=== PATIENT | female | born 1990 | race American Indian/Alaskan Native ===

== ENCOUNTER 2016-10-15 13:29 | Emergency (ER) | payer MEDICAID, OTHER ==
[2016-10-15 15:25] VITALS: BP 120/72
[2016-10-15 16:12] LABS: Basophils % (Auto) 0.1 % (0.0-1.8); Eosinophils % (Auto) 0.1 % (0.0-4.3); Hematocrit 37.7 % (30.3-42.9); Mean Corpuscular HGB Conc 32 % (30-34); Mean Corpuscular Hemoglobin 26 pg (28-32); Mean Corpuscular Volume 83 fl (79-97); Platelet Count 278 K/mm3 (140-440); Red Blood Count 4.55 M/mm3 (3.65-5.03); Red Cell Distribution Width 14.8 % (13.2-15.2)
[2016-10-15 16:27] LABS: Anion Gap 18 mmol/L; Blood Urea Nitrogen 15 mg/dL (7-17); Carbon Dioxide 25 mmol/L (22-30); Chloride 99.9 mmol/L (98-107); Glucose 97 mg/dL (65-100); Potassium 4.4 mmol/L (3.6-5.0); Sodium 138 mmol/L (137-145)
[2016-10-15 16:48] LABS: Bilirubin,Urine NEG (Negative); Blood,Urine NEG (Negative); Ketones,Urine 20 mg/dL (Negative); Leukocyte Esterase,Urine NEG (Negative); Mucus,Urine 2+ /HPF; Nitrite,Urine NEG (Negative); Protein,Urine <15 mg/dL mg/dL (Negative); Urobilinogen,Urine < 2.0 mg/dL (<2.0)
--- NOTE | 2016-10-16 07:09 | ED Elopement Review ---
ED Pt Elopement review - Results review Lab results: Laboratory Tests 10/15/16 10/15/16 10/15/16 15:54 15:54 Unknown WBC 15.0 H RBC 4.55 Hgb 12.0 Hct 37.7 MCV 83 MCH 26 L MCHC 32 RDW 14.8 Plt Count 278 Lymph % (Auto) 6.7 L [place] % (Auto) 3.1 Eos % (Auto) 0.1 Baso % (Auto) 0.1 Lymph # 1.0 L [place] # 0.5 Eos # 0.0 Baso # 0.0 Seg Neutrophils % 90.0 H Seg Neutrophils # 13.5 H Sodium 138 Potassium 4.4 Chloride 99.9 Carbon Dioxide 25 Anion Gap 18 BUN 15 Creatinine 0.6 L Estimated GFR > 60 BUN/Creatinine Ratio 25.00 Glucose 97 Calcium 9.0 Urine Color Yellow Urine Turbidity Clear Urine pH 5.0 Ur Specific [place] 1.032 H Urine Protein <15 mg/dl Urine Glucose (UA) Neg Urine Ketones 20 Urine Blood Neg Urine Nitrite Neg Ur Reducing Substances Not Reportable Urine Bilirubin Neg Urine Ictotest Not Reportable Urine Urobilinogen < 2.0 Ur Leukocyte Esterase Neg Urine WBC (Auto) 2.0 Urine RBC (Auto) 6.0 U Epithel Cells (Auto) 1.0 Urine Mucus 2+ Urine HCG, Qual Negative - Call Back decision Pt Call Back Decision: No action required
== END 2016-10-15 22:15 | disposition left against medical advice (07) ==
LOC: ED 13:29
DX: R11.2 Nausea with vomiting, unspecified (principal); R19.7 Diarrhea, unspecified; M79.1 Myalgia; Z53.21 Procedure and treatment not carried out due to patient leaving prior to being seen by health care provider
CPT/HCPCS: 36415; 80048; 81001; 81025; 85025

== ENCOUNTER 2020-03-12 17:17 | Outpatient (CLI) | payer OTHER ==
[2020-03-12] MEDS ORDERED: ONDANSETRON 4 MG/2 ML INJ IV PRN (17:41)
[2020-03-12] MEDS ORDERED: LACTATED RINGERS 1,000 ML IV SCH (18:00)
[2020-03-12 18:49] VITALS: BP 113/67
== END 2020-03-12 20:10 | disposition home or self-care (01) ==
LOC: APU 17:17 → TRG 17:17
PROVIDERS: ATTEND Obstetrics & Gynecology
DX: O26.893 Other specified pregnancy related conditions, third trimester (principal); R10.30 Lower abdominal pain, unspecified; O47.1 False labor at or after 37 completed weeks of gestation; Z3A.38 38 weeks gestation of pregnancy
CPT/HCPCS: 59025; 96365; 96366; J2405; J7120; 96360; 96374

== ENCOUNTER 2020-05-12 07:02 | Day surgery (SDC) | payer BC, OTHER ==
--- NOTE | 2020-05-10 15:05 | History and Physical Report ---
History of Present Illness Date of examination: 05/10/20 Date of admission: 05/12/2020 Chief complaint: here for sterilization History of present illness: Visit Type: Pre-Op CC: long periods. History of Present Illness: pt presents for pre op, laparoscopy w/salpingectomy: c/o periods lasting l;onger than normal......................................................................Latonia Ruiz May 09, 2020 9:54 AM Mask, Patient denies fever, cough, shortness of breath and exposure to COVID-19. Pt here for pre op for BTL vis salpingectomy. All risk/benefits/alternatives were d/w pt and questions were addressed and answered. Consents signed and arlyn nancy on the chart. Copy was also provided to the pt. Vital Signs: Patient Profile: 30 Years Old Female LMP: 04/27/2020 Height: 65 inches (165.10 cm) Weight: 171 pounds BMI: 28.45 Temp: 97.8 degrees F BP sittin / 66 (left arm) Menstrual History: LMP (date): 04/27/2020 LMP - Character: normal Menarche: 13 Menses interval: 28 days Menstrual flow: 1.5 wks days Current Method of Contraception: Abstinence Past History : 5 Term Births: 3 Premature Births: 1 Living Children: 4 Para: 4 Mult. Births: 0 Prev : 0 Prev. attempt? 0 Aborta: 1 Elect. Ab: 1 Spont. Ab: 0 Ectopics: 0 # 1 Delivery date: 01/05/2013 Weeks Gestation: 35 Delivery type: Sex: Male weight: 4.8 Name: Louie # 2 Delivery date: 10/06/2014 Weeks Gestation: 39 Delivery type: Sex: Female weight: 6.7 Name: Ching # 3 Delivery date: 03/12/2016 Weeks Gestation: 36 Delivery type: Vaginal Anesthesia type: epidural Delivery location: [facility] Infant Sex: female weight: 5.75 Comments: rupture of membranes # 4 Delivery date: 03/15/2020 Weeks Gestation: 38 Delivery type: Vaginal Anesthesia type: epidural Delivery location: [facility] Sex: female weight: 7.31 Name: rolan Comments: GBS+ completed 2 doses YARD HAND History Uterine Surgery (not C/S): negative Operations: D&C:EAB Anesthesia Complications: negative Abnormal PAP: negative Infection History HIV Risk Eval: no Personal hx. of genital herpes: no Partner hx. of genital herpes: no Hx of STD: + CT and Trich Other: Trich Active Medications (reviewed today): ONE A DAY MULTIVITAMINS () Current Allergies (reviewed today): No known allergies Past Medical History: Reviewed history from 11/28/2015 and no changes required: mitral valve prolapse - dx at [facility] SVT with first Past Surgical History: Reviewed history from 10/27/2017 and no changes required: D&C:EAB Family History Summary: Reviewed history Last on 10/27/2017 and no changes required:05/11/2020 General Comments - FH: No Family History of Breast Cancer No Family History of Colon Cancer No Family History of Ovarian Cancer Social History: Reviewed history from 12/20/2014 and no changes required: Patient is single Carmne's Risk Factors: Smoked Tobacco Use: Never smoker Smokeless Tobacco Use: Never Drug use: no HIV high-risk behavior: no Alcohol use: yes Exercise: no Seatbelt use: 100 % Review of Systems General Denies fever, chills, sweats, anorexia, fatigue, weakness, malaise, weight loss and sleep disorder. Denies nausea, vomiting, headache, swelling of legs, abdominal pain, vaginal discharge, vaginal bleeding and contractions. Denies vaginal discharge, incontinence, dysuria, hematuria, urinary frequency, amenorrhea, menorrhagia, abnormal vaginal bleeding, pelvic pain, genital sores, decreased libido, painful periods, painful sex, urinary urgency, hot flashes, vaginal dryness, vaginal itching and vaginal odor. CV Denies chest pains, palpitations, syncope, dyspnea on exertion, orthopnea, PND and peripheral edema. Resp Denies cough, dyspnea at rest, excessive sputum, hemoptysis, wheezing and pleurisy. GI Denies nausea, vomiting, diarrhea, constipation, change in bowel habits, abdominal pain, melena, hematochezia, jaundice, gas/bloating, indigestion/heartburn, dysphagia and odynophagia. Endo Denies cold intolerance, heat intolerance, polydipsia, polyphagia, polyuria and unusual weight change. Breast Denies left breast lump, right breast lump, nipple discharge, bloody discharge from nipple, breast pain, abnormal mammogram and breast enlargement. MS Denies back pain, joint pain, joint swelling, muscle cramps, muscle weakness, stiffness, arthritis, sciatica, restless legs, leg pain at night and leg pain with exertion. Derm Denies rash, itching, dryness and suspicious lesions. Neuro Denies paralysis, paresthesias, headache, seizures, tremors, vertigo, transient blindness, frequent falls, frequent headaches and difficulty walking. Psych Denies depression, anxiety, irritability and mood swings. Eyes Denies blurring, diplopia, irritation, discharge, vision loss, eye pain and photophobia. ENT Denies earache, ear discharge, tinnitus, decreased hearing, nasal congestion, nosebleeds, sore throat and hoarseness. Allergy Denies urticaria, allergic rash, hay fever and recurrent infections. Heme Denies abnormal bruising, bleeding and enlarged lymph nodes. Laboratory Results Past History Past Medical History: other (see hpi) Past Surgical History: other (see hpi) YARD HAND History: other (see hpi) Family/Genetic History: other (see hpi) Social history: other (see hpi) - Obstetrical History : 5 Medications and Allergies Allergies Allergy/AdvReac Type Severity Reaction Status Date / Time No Known Allergies Allergy Verified 05/04/20 16:06 Home Medications Medication Instructions Recorded Confirmed Last Taken Type Multivit-Min/Iron/Folic Acid/K 1 each PO DAILY 05/04/20 05/04/20 Unknown History [One Daily Women's Multivitamin] - Physical Exam Cardiovascular: Normal S1, Normal S2 Lungs: Positive: Clear to auscultation, Normal air movement Abdomen: Positive: normal appearance, soft. Negative: distention, tenderness, guarding Genitourinary (Female): Positive: other (deferred) Deep Tendon Reflex Grade: Normal +2 Results All other labs normal. Assessment and Plan - Patient Problems (1) Encounter for sterilization Status: Acute Plan to address problem: -all risk, benefits and alternatives d/w pt. All questions were addressed and answered. Consents signed and placed on the chart. -to OR for above stated procedure
[~2020-05-12 07:02] MED LIST: CELECOXIB 200 MG CAP PO NR; GABAPENTIN 300 MG CAP PO NR; LACTATED RINGERS 1,000 ML IV SCH; MAGNESIUM OXIDE 400 MG TAB PO SCH; MIDAZOLAM 2 MG/2 ML INJ IV NR; ceFAZolin/Water 2 GM/20 ML 2 GM/20 ML SYRINGE IV NR
[2020-05-12] MEDS ORDERED: HYDROmorphone 1 MG/1 ML INJ IV PRN (07:49)
--- NOTE | 2020-05-12 07:49 | Anesthesia Consultation ---
Anesthesia Consult and Med Hx Date of service: 05/12/20 - Airway Anesthetic Teeth Evaluation: Good ROM Head & Neck: Adequate Mental/Hyoid Distance: Adequate Mallampati Class: Class I Intubation Access Assessment: Good - Pulmonary Exam CTA: Yes - Cardiac Exam Cardiac Exam: RRR - Pre-Operative Health Status ASA Pre-Surgery Classification: ASA1 Proposed Anesthetic Plan: General - Pulmonary Hx Smoking: No Hx Respiratory Symptoms: No Hx Sleep Apnea: No - Cardiovascular System Hx Hypertension: No Hx Heart Attack/AMI: No Hx Percutaneous Transluminal Coronary Angioplasty (PTCA): No - Central Nervous System CVA: No - Gastrointestinal Hx Gastroesophageal Reflux Disease: No - Endocrine Hx Renal Disease: No Hx Liver Disease: No Hx Insulin Dependent Diabetes: No Hx Non-Insulin Dependent Diabetes: No Hx Thyroid Disease: No - Other Systems Hx Obesity: No - Additional Comments Anesthesia Medical History Comments: No hx anesthetic complications.
--- NOTE | 2020-05-12 07:49 | Anesthesia Day of Surgery ---
Anesthesia Day of Surgery - Day of Surgery Patient Examined: Yes Patient H&P Reviewed: Yes Patient is NPO: Yes
[2020-05-12] MEDS ORDERED: BUPIVACAINE/PF (0.5%) 5 MG/1 ML 10 ML VIAL INFILTRATI ONE ×2 (09:15→10:15)
[2020-05-12] MEDS ORDERED: fentaNYL 100 MCG/2 ML INJ ONE (09:23)
[2020-05-12] MEDS ORDERED: GLYCOPYRROLATE 0.4 MG/2 ML INJ ONE (09:23)
[2020-05-12] MEDS ORDERED: SUCCINYLCHOLINE CHLORIDE 200 MG/10 ML INJ MDV ONE (09:23)
[2020-05-12] MEDS ORDERED: NEOSTIGMINE 10MG/10 ML INJ MDV ONE (09:23)
[2020-05-12] MEDS ORDERED: ONDANSETRON 4 MG/2 ML INJ ONE (09:23)
[2020-05-12] MEDS ORDERED: propofoL 200 MG/20 ML VIAL IV ONE (09:23)
[2020-05-12] MEDS ORDERED: PHENYLEPHRINE/NS 1,000 MCG/10 ML SYRINGE (OR USE) IV ONE (09:23)
[2020-05-12] MEDS ORDERED: LIDOCAINE MPF (2%) 20 MG/1 ML VIAL 5 ML ONE (09:23)
[2020-05-12] MEDS ORDERED: dexAMETHasone 20 MG/5 ML VIAL ONE (09:23)
[2020-05-12] MEDS ORDERED: ROCURONIUM 50 MG/5 ML INJ IV ONE (09:30)
[2020-05-12] MEDS ORDERED: SODIUM CHLORIDE 0.9% IRR 1,000 ML BOTTLE IR ONE (09:55)
[2020-05-12] MEDS ORDERED: HYDROmorphone 1 MG/1 ML INJ ONE (10:03)
--- NOTE | 2020-05-12 10:45 | Operative Report ---
Operative Report Operative Report: Date of procedure: 05/12/2020 Pre-operative diagnosis: Encounter for sterilization Post-operative diagnosis: Same Procedure name(s): Laparoscopic bilateral salpingectomy Surgeon: Dr. Rosales Assistant Housekeeping Manager: FREDDY Anesthesia: General endotracheal anesthesia EBL: Minimal Urine output: 100 cc of clear urine out at the beginning of the procedure Fluids: 1 L Findings: Grossly normal fallopian tubes and ovaries bilaterally normal uterus Indications: Patient desires sterilization. All risks benefits and alternatives were discussed with the patient. Given risk patient desired to have bilateral salpingectomy. Consents were signed and placed on the chart. Procedure: Patient was taken to the operating room and which she was placed under general endotracheal anesthesia. Patient was then prepped and draped in sterile fashion and placed in dorsal lithotomy position in Sid stirrups. Attention was then turned to the vagina in which a Humi uterine manipulator was placed. Patient underwent straight catheterization. Attention was then turned to the umbilicus and which an infraumbilical incision was made with the scalpel 5mm trocar was placed using direct visualization with the camera. Abdomen was then insufflated with gas. Under direct visualization two 5 mm and one 8 mm trocar were placed. Left fallopian tube was grasp with a grasper elevated cauterized and transected with the tripolar instrument and handed off for pathology. This was repeated on the right side. After tubal ligation was completed all instruments were removed from the abdomen under direct visualization. All gas was also released from the abdomen. The skin was approximated with 4-0 Monocryl in a subcuticular stitch. The patient tolerated procedure well. Sponge, lap, and needle counts were all correct x3 the patient was taken to the recovery room awake and in stable condition. Patient was given 2 g of Ancef prior to the onset of the procedure.
--- NOTE | 2020-05-12 10:48 | Short Stay Summary ---
Short Stay Documentation Date of service: 05/12/20 - History H&P: dictated Social history: other (see hpi) - Allergies and Medications Current Medications: Allergies No Known Allergies Allergy (Verified 05/04/20 16:06) Home Medications Medication Instructions Recorded Confirmed Last Taken Type Multivit-Min/Iron/Folic Acid/K 1 each PO DAILY 05/04/20 05/04/20 Unknown History [One Daily Women's Multivitamin] RX: Ibuprofen [Motrin 800 MG tab] 800 mg PO Q8HR PRN #30 tablet 05/12/20 Unknown Rx oxyCODONE /ACETAMINOPHEN [Percocet 1 tab PO Q4HR #30 tab 05/12/20 Unknown Rx 5/325] Active Medications Celecoxib (Celebrex) 200 mg PO PREOP NR Stop: 05/12/20 23:00 Gabapentin (Gabapentin) 300 mg PO PREOP NR Stop: 05/12/20 23:00 Hydromorphone HCl (Dilaudid) 0.5 mg IV Q10MIN PRN PRN Reason: Pain , Severe (7-10) Stop: 05/12/20 23:00 Cefazolin Sodium (Ancef/Sterile Water 2 Gm/20 Ml) 2 gm in 20 mls @ 80 mls/hr IV PREOP NR; Protocol Stop: 05/12/20 23:00 Lactated Ringer's (Lactated Ringers) 1,000 mls @ 100 mls/hr IV DIRECT MIGUEL Stop: 05/12/20 23:59 Magnesium Oxide (Mag-Ox) 400 mg PO PREOP MIGUEL Stop: 05/12/20 23:00 Midazolam HCl (Versed) 2 mg IV PREOP NR Stop: 05/12/20 23:00 - Brief post op/procedure progress note Date of procedure: 05/12/20 Pre-op diagnosis: Encounter for sterilization Post-op diagnosis: same Procedure: Bilateral salpingectomy laparoscopic Exam under anesthesia Anesthesia: GETA Findings: See operative report Surgeon: KESHA WYNNE Estimated blood loss: minimal Pathology: list (Segments of left and right fallopian tube) Condition: stable - Hospital course Hospital course: Patient admitted for above-stated procedure that was not complicated. Patient will be discharged home when she has met discharge criteria in the PACU. - Disposition Condition at discharge: Good Disposition: DC-01 TO HOME OR SELFCARE - Discharge Diagnoses (1) Encounter for sterilization Status: Acute Short Stay Discharge Plan Activity: no restrictions Weight Bearing Status: Weight Bear as Tolerated Diet: regular Wound: open to air Follow up with: EDDIE MERINO MD [Primary Care Provider] - 7 Days Prescriptions: RX: Ibuprofen [Motrin 800 MG tab] 800 mg PO Q8HR PRN #30 tablet PRN Reason: Pain, Moderate (4-6) oxyCODONE /ACETAMINOPHEN [Percocet 5/325] 1 tab PO Q4HR #30 tab
[2020-05-12 12:18] VITALS: BP 120/65
--- NOTE | 2020-05-12 14:29 | Post Anesthesia Evaluation ---
- Post Anesthesia Evaluation Patient Participated: Yes Airway Patent: Yes Stable Respiratory Function: Yes Nausea/Vomiting: No Temp > 96.8F: Yes Pain Manageable: Yes Adequeate Hydration: Yes Anesthesia Complications: No
== END 2020-05-12 07:03 | disposition home or self-care (01) ==
LOC: OR 07:02
PROVIDERS: ATTEND Obstetrics & Gynecology
DX: Z30.2 Encounter for sterilization (principal); Z79.899 Other long term (current) drug therapy; Z98.890 Other specified postprocedural states
CPT/HCPCS: 58670; 81025; 88302; J0330; J0690; J1100; J1170; J2250; J2370; J2405; J2704; J2710; J3010; J7120